=== PATIENT | male | born 1945 | race Caucasian/White ===

== ENCOUNTER 2020-03-22 11:51 | Emergency (ER) | payer OTHER ==
[~2020-03-22] VITALS: Ht 180.3 cm; Wt 120.2 kg
[2020-03-22] MEDS ORDERED: AMIT25 PO (12:02)
[2020-03-22] MEDS ORDERED: FINA5 PO (12:02)
[2020-03-22] MEDS ORDERED: AMLO10 PO (12:02)
[2020-03-22] MEDS ORDERED: CALCIUM CIT 311 EACH PO (12:02)
[2020-03-22] MEDS ORDERED: BASAGLAR K100 UNIT/1 (12:03)
[2020-03-22] MEDS ORDERED: TAMS.4ER PO (12:04)
[2020-03-22] MEDS ORDERED: PRAV20 PO (12:04)
[2020-03-22] MEDS ORDERED: MAGNESIUM OXID500 MG PO (12:04)
[2020-03-22 12:20] LABS: BASOPHILS ABSOLUTE AUTO 0.04 K/mm3 (0.00-0.23); BASOPHILS PERCENT AUTO 1 % (0-2); EOSINOPHILS ABSOLUTE AUTO 0.44 K/mm3 (0.00-0.68); EOSINOPHILS PERCENT AUTO 6 % (0-6); Hematocrit 43.9 % (37.0-53.0); Hemoglobin 14.1 g/dL (13.5-17.5); IMMATURE GRAN ABSOLUTE AUTO 0.02 K/mm3 (0.00-0.10); IMMATURE GRAN PERCENT AUTO 0 % (0-1); LYMPHOCYTES ABSOLUTE AUTO 1.84 K/mm3 (0.84-5.20); LYMPHOCYTES PERCENT AUTO 23 % (21-46); MONOCYTES PERCENT AUTO 6 % (4-13); Mean Corpuscular HGB 31.1 pg (26.0-34.0); Mean Corpuscular HGB Conc 32.1 g/dL (31.5-36.5); Mean Corpuscular Volume 97 fL (80-100); Mean Platelet Volume 9.7 fL (9.1-12.4); NEUTROPHILS ABSOLUTE AUTO 5.05 K/mm3 (1.96-9.15); NEUTROPHILS PERCENT AUTO 64 % (41-73); Platelet Count 185 K/mm3 (150-400); RDW Coefficient Variation 12.7 % (11.7-14.2); RDW Standard Deviation 45.1 fL (35.1-46.3); Red Blood Cell Count 4.54 M/mm3 (4.30-5.90); White Blood Cell Count 7.89 K/mm3 (4.00-11.30)
[2020-03-22 12:40] LABS: Alanine Aminotransfer (ALT/SGP 33 U/L (12-78); Albumin, Blood 3.3 g/dL (3.4-5.0); Albumin/Globulin Ratio 0.8 (0.8-1.8); Alk Phos 100 U/L (50-136); Anion Gap 7 mmol/L (6-16); Aspartate Aminotrans (AST/SGOT 25 U/L (12-37); Bilirubin, Total 0.5 mg/dL (0.1-1.0); Blood Urea Nitrogen 29 mg/dL (8-24); Bun/Creatinine Ratio 17.7 (12.0-20.0); CO2, Blood 24 mmol/L (21-32); Calcium, Blood 9.2 mg/dL (8.5-10.1); Chloride, Blood 108 mmol/L (98-108); Creatinine, Blood 1.64 mg/dL (0.60-1.20); Globulin, Blood 4.1 g/dL (2.2-4.0); Glomerular Filtration Rate 44 (60-); Glucose, Blood 301 mg/dL (70-99); Potassium, Blood 4.4 mmol/L (3.5-5.5); Sodium, Blood 139 mmol/L (136-145); Total Protein, Blood 7.4 g/dL (6.4-8.2); Troponin I <0.015 ng/mL (0.000-0.040)
== END 2020-03-22 14:10 | disposition home or self-care (01) ==
LOC: ER 11:51
PROVIDERS: Emergency Medicine
DX: R07.9 Chest pain, unspecified (principal); E11.65 Type 2 diabetes mellitus with hyperglycemia; Z87.891 Personal history of nicotine dependence; Z79.899 Other long term (current) drug therapy
CPT/HCPCS: 71046; 80053; 83690; 83880; 84484; 85025; 93005; 93010; 99285-25

== ENCOUNTER 2022-01-13 12:47 | Emergency (ER) | payer OTHER ==
[~2022-01-13] VITALS: Ht 177.8 cm; Wt 101.6 kg
[~2022-01-13 12:47] MED LIST: AMIT25 PO; AMLO10 PO; BASAGLAR K100 UNIT/1; CALCIUM CIT 311 EACH PO; FINA5 PO; MAGNESIUM OXID500 MG PO; PRAV20 PO; TAMS.4ER PO
[2022-01-13] MEDS ORDERED: CYCL10 PO (15:12)
[2022-01-13] MEDS ORDERED: ACETAMINOPHEN500 MG PO (15:12)
== END 2022-01-13 15:32 | disposition home or self-care (01) ==
LOC: ER 12:47
DX: M54.41 Lumbago with sciatica, right side (principal); Z87.891 Personal history of nicotine dependence; Z79.899 Other long term (current) drug therapy; Z79.4 Long term (current) use of insulin
CPT/HCPCS: 72100

== ENCOUNTER 2022-03-10 15:34 | Emergency (ER) | payer OTHER ==
[~2022-03-10] VITALS: Ht 180.3 cm; Wt 104.3 kg
[~2022-03-10 15:34] MED LIST changes: +ACETAMINOPHEN500 MG PO; +CYCL10 PO
[2022-03-10 16:05] LABS: BASOPHILS ABSOLUTE AUTO 0.02 K/mm3 (0.00-0.23); BASOPHILS PERCENT AUTO 0 % (0-2); EOSINOPHILS ABSOLUTE AUTO 0.25 K/mm3 (0.00-0.68); EOSINOPHILS PERCENT AUTO 3 % (0-6); Hematocrit 44.9 % (37.0-53.0); Hemoglobin 15.2 g/dL (13.5-17.5); IMMATURE GRAN ABSOLUTE AUTO 0.02 K/mm3 (0.00-0.10); IMMATURE GRAN PERCENT AUTO 0 % (0-1); LYMPHOCYTES ABSOLUTE AUTO 1.68 K/mm3 (0.84-5.20); LYMPHOCYTES PERCENT AUTO 22 % (21-46); MONOCYTES ABSOLUTE AUTO 0.57 K/mm3 (0.16-1.47); MONOCYTES PERCENT AUTO 8 % (4-13); Mean Corpuscular HGB 31.8 pg (26.0-34.0); Mean Corpuscular HGB Conc 33.9 g/dL (31.5-36.5); Mean Corpuscular Volume 94 fL (80-100); NEUTROPHILS PERCENT AUTO 66 % (41-73); Platelet Count 211 K/mm3 (150-400); RDW Coefficient Variation 12.5 % (11.7-14.2); RDW Standard Deviation 43.2 fL (35.1-46.3); Red Blood Cell Count 4.78 M/mm3 (4.30-5.90); White Blood Cell Count 7.54 K/mm3 (4.00-11.30)
[2022-03-10 16:27] LABS: Albumin, Blood 3.2 g/dL (3.4-5.0); Albumin/Globulin Ratio 0.8 (0.8-1.8); Bilirubin, Total 0.6 mg/dL (0.1-1.0); Calcium, Blood 9.5 mg/dL (8.5-10.1); Creatinine, Blood 1.47 mg/dL (0.60-1.20); Total Protein, Blood 7.2 g/dL (6.4-8.2)
== END 2022-03-10 17:36 | disposition home or self-care (01) ==
LOC: ER 15:34
PROVIDERS: Emergency Medicine
DX: R55 Syncope and collapse (principal); T14.8XXA Other injury of unspecified body region, initial encounter; N28.9 Disorder of kidney and ureter, unspecified; Z87.891 Personal history of nicotine dependence; Z79.899 Other long term (current) drug therapy; W19.XXXA Unspecified fall, initial encounter; Z91.81 History of falling
CPT/HCPCS: 71045; 80053; 82947; 83880; 84484; 85025; 93242

== ENCOUNTER 2022-10-16 10:26 | Day surgery (SDC) | payer OTHER ==
[~2022-10-16] VITALS: Ht 177.8 cm; Wt 105.8 kg
[2022-10-16] MEDS ORDERED: JARDIANCE25 MG (11:01)
[2022-10-16] MEDS ORDERED: EZET10 (11:02)
--- NOTE | 2022-10-16 11:10 | NUR ---
10/16/22 1110 Linnea Marie TETRACAINE PLACED AT 1100, PLEDGET PLACED AT 1103
== END 2022-10-16 12:45 | disposition home or self-care (01) ==
LOC: ORSCSDS 10:26
PROVIDERS: Ophthalmology
PROC: 08RJ3JZ Replacement of Right Lens with Synthetic Substitute, Percutaneous Approach (ICD-10-PCS; principal; 2022-10-16 12:00)
DX: H25.11 Age-related nuclear cataract, right eye (principal); H52.201 Unspecified astigmatism, right eye; I10 Essential (primary) hypertension; E11.9 Type 2 diabetes mellitus without complications; E78.5 Hyperlipidemia, unspecified; Z79.4 Long term (current) use of insulin; Z79.899 Other long term (current) drug therapy; J45.909 Unspecified asthma, uncomplicated
CPT/HCPCS: 82947; J2001; J2250; J3010; J3301; J7040; V2632

== ENCOUNTER 2023-04-06 14:06 | Inpatient (IN) | payer OTHER ==
[~2023-04-06] VITALS: Ht 177.8 cm; Wt 89.0 kg
[~2023-04-06 14:06] MED LIST changes: +EZET10; +JARDIANCE25 MG
[2023-04-06 14:54] LABS: BASOPHILS ABSOLUTE AUTO 0.03 K/mm3 (0.00-0.23); BASOPHILS PERCENT AUTO 0 % (0-2); EOSINOPHILS ABSOLUTE AUTO 0.29 K/mm3 (0.00-0.68); EOSINOPHILS PERCENT AUTO 4 % (0-6); Hematocrit 47.2 % (37.0-53.0); Hemoglobin 15.4 g/dL (13.5-17.5); IMMATURE GRAN ABSOLUTE AUTO 0.02 K/mm3 (0.00-0.10); IMMATURE GRAN PERCENT AUTO 0 % (0-1); LYMPHOCYTES ABSOLUTE AUTO 0.97 K/mm3 (0.84-5.20); LYMPHOCYTES PERCENT AUTO 12 % (21-46); MONOCYTES ABSOLUTE AUTO 0.68 K/mm3 (0.16-1.47); MONOCYTES PERCENT AUTO 8 % (4-13); Mean Corpuscular HGB 31.1 pg (26.0-34.0); Mean Corpuscular HGB Conc 32.6 g/dL (31.5-36.5); Mean Corpuscular Volume 95 fL (80-100); Mean Platelet Volume 9.6 fL (9.1-12.4); NEUTROPHILS ABSOLUTE AUTO 6.36 K/mm3 (1.96-9.15); NEUTROPHILS PERCENT AUTO 76 % (41-73); Platelet Count 226 K/mm3 (150-400); RDW Coefficient Variation 12.6 % (11.7-14.2); RDW Standard Deviation 43.9 fL (35.1-46.3); Red Blood Cell Count 4.95 M/mm3 (4.30-5.90); White Blood Cell Count 8.35 K/mm3 (4.00-11.30)
[2023-04-06 15:07] LABS: Albumin/Globulin Ratio 0.7 (0.8-1.8); Bilirubin, Total 0.4 mg/dL (0.1-1.0); Bun/Creatinine Ratio 10.9 (12.0-20.0); Calcium, Blood 9.5 mg/dL (8.5-10.1); Creatinine, Blood 1.56 mg/dL (0.60-1.20); Globulin, Blood 4.2 g/dL (2.2-4.0); Potassium, Blood 4.2 mmol/L (3.5-5.5); Total Protein, Blood 7.2 g/dL (6.4-8.2)
[2023-04-06 21:49] LABS: D-Dimer, Quantitative 1.5 mg/L FEU (0.00-0.52); International Normalized Ratio 1.04; Prothrombin Time Results 10.9 Sec (9.7-11.5)
[2023-04-06 23:15] VITALS: BP 139/73
[2023-04-06 23:59] LABS: PCO2 Arterial 50.3 mmHg (35-45); PO2 Arterial 62.6 mmHg (80-100); pH Blood Arterial 7.27 (7.35-7.45)
[2023-04-07] VITALS (9 sets, daily range): BP systolic 111–154; BP diastolic 64–97
--- NOTE | 2023-04-07 02:10 | NUR ---
UPDATE PROVIDER IN TO SEE PT AT BEDSIDE AND DISCUSS WITH PT. PT LUNGS "GURGLY" AND RUB NOTED. PROVIDER ORDERS FOR REPEAT CXR. PROVIDER ALSO TO PUT IN ORDERS FOR PT TO START PRESNIDONE AND ONE TIME DOSE OF TORODOL IV FOR PAIN MANAGEMENT. PT IN INTENSE PAIN IN "CHEST AND ABDOMEN". PT DESCRIBES PAIN "STABBING AND TROBBING" UNDER RIGHT BREAST, UPPER ABDOMEN AND INTO BACK". PT ABDOMEN NOT TENDER TO THE TOUCH, NO MASSES PALPATED. TORODOL ADMINISTERED W/MINIMAL RELIEF. ADDITIONAL PAIN MEDICATION ADMINISTERED PER EMAR WHICH PROVIDED RELIEF. PT NOW RESTING IN ROOM.
[2023-04-07 03:54] LABS: BASOPHILS ABSOLUTE AUTO 0.05 K/mm3 (0.00-0.23); BASOPHILS PERCENT AUTO 0 % (0-2); EOSINOPHILS ABSOLUTE AUTO 0.21 K/mm3 (0.00-0.68); EOSINOPHILS PERCENT AUTO 2 % (0-6); Hemoglobin 14.8 g/dL (13.5-17.5); IMMATURE GRAN ABSOLUTE AUTO 0.05 K/mm3 (0.00-0.10); IMMATURE GRAN PERCENT AUTO 0 % (0-1); LYMPHOCYTES ABSOLUTE AUTO 1.05 K/mm3 (0.84-5.20); LYMPHOCYTES PERCENT AUTO 9 % (21-46); MONOCYTES ABSOLUTE AUTO 1.04 K/mm3 (0.16-1.47); MONOCYTES PERCENT AUTO 9 % (4-13); Mean Corpuscular HGB 31.3 pg (26.0-34.0); Mean Corpuscular HGB Conc 32.9 g/dL (31.5-36.5); Mean Corpuscular Volume 95 fL (80-100); Mean Platelet Volume 9.2 fL (9.1-12.4); NEUTROPHILS ABSOLUTE AUTO 9.59 K/mm3 (1.96-9.15); NEUTROPHILS PERCENT AUTO 80 % (41-73); Platelet Count 222 K/mm3 (150-400); RDW Coefficient Variation 12.4 % (11.7-14.2); RDW Standard Deviation 43.7 fL (35.1-46.3); Red Blood Cell Count 4.73 M/mm3 (4.30-5.90); White Blood Cell Count 11.99 K/mm3 (4.00-11.30)
[2023-04-07 04:08] LABS: International Normalized Ratio 1.03; Prothrombin Time Results 10.8 Sec (9.7-11.5)
[2023-04-07 04:17] LABS: Albumin, Blood 2.9 g/dL (3.4-5.0); Albumin/Globulin Ratio 0.7 (0.8-1.8); Bilirubin, Total 0.5 mg/dL (0.1-1.0); Bun/Creatinine Ratio 10.5 (12.0-20.0); Calcium, Blood 9.2 mg/dL (8.5-10.1); Creatinine, Blood 1.72 mg/dL (0.60-1.20); Globulin, Blood 4.3 g/dL (2.2-4.0); Magnesium, Blood 2.5 mg/dL (1.6-2.4); Potassium, Blood 4.6 mmol/L (3.5-5.5); Total Protein, Blood 7.2 g/dL (6.4-8.2)
[2023-04-07 06:03] LABS: Adenovirus Not Detected (NOT DETECT); Bordetella pertussis Not Detected (NOT DETECT); Chlamydophila pneumoniae Not Detected (NOT DETECT); Coronavirus 229E Not Detected (NOT DETECT); Coronavirus HKU1 Not Detected (NOT DETECT); Coronavirus NL63 Not Detected (NOT DETECT); Coronavirus OC43 Not Detected (NOT DETECT); Human Metapneumovirus Not Detected (NOT DETECT); Human Rhinovirus/Enterovirus Not Detected (NOT DETECT); Influenza A/2009-H1 Not Detected (NOT DETECT); Influenza A/H1 Not Detected (NOT DETECT); Influenza A/H3 Not Detected (NOT DETECT); Influenza B Not Detected (NOT DETECT); Mycoplasma pneumoniae Not Detected (NOT DETECT); Parainfluenza Virus 1 Not Detected (NOT DETECT); Parainfluenza Virus 2 Not Detected (NOT DETECT); Parainfluenza Virus 3 Not Detected (NOT DETECT); Parainfluenza Virus 4 Not Detected (NOT DETECT); Respiratory Syncytial Virus Not Detected (NOT DETECT); SARS-Cov-2 (COVID-19), BioFire Not Detected (NOT DETECT)
--- NOTE | 2023-04-07 07:50 | NUR ---
Bedside report received from DARWIN Tong. Pt is apparently sleeping in dimly lit room, HOB elevated and respirations noted even, unlabored and sinus rhythm at 70 bpm noted by bedside aquaculturist. RN states that pt received increased dose of IV morphine at approx 2 am and finally had relief from his excrutiating pain.
--- NOTE | 2023-04-07 08:39 | NUR ---
Pt had a few single sharp pain episodes this morning, associated with deep inspiration. States it resolved when he sat up. STates that he doesn't always get the pain when he takes deep breaths. He is now lying back in bed, HOB elevated 30 degrees. NO swelling, no dyspnea, and no other symptoms.
--- NOTE | 2023-04-07 09:19 | NUR ---
Pt was educated re: sources of ignition and dangers associated with them in hospital where oxygen is in use. Pt was educated that any sources of ignition are prohibited on the hospital campus at all times, and that any which are brought in by the patient or any visitors must be removed immediately. Pt verbalized compliance and understanding.
--- NOTE | 2023-04-07 11:48 | NUR ---
Call to Dr. Henderson regarding pt's blood sugar coverage. The pt states he takes 10 units of insulin for lunch and for dinner. Received order for 10 units coverage at this time, and Dr. Henderson will evaluate and adjust the order for future coverage.
--- NOTE | 2023-04-07 17:10 | NUR ---
Pt is sitting up in recliner chair, which he has been doing for most of the afternoon. Stand by assistance to get to the bathroom, either staff or by his . He has not had any pain this afternoon that he has reported. Appears to be comfortable, and is no longer requiring oxygen at rest. Pt and his informed of the imaging ordered for tomorrow morning, expected around 8 am, per nuclear med tech today.
[2023-04-07] MEDS ORDERED: AMIT25 PO (22:31)
[2023-04-07] MEDS ORDERED: AMIT50 PO (22:31)
[2023-04-07] MEDS ORDERED: Cyclobenzaprine5 MG PO (22:32)
[2023-04-07] MEDS ORDERED: THERA-D2000 UNIT PO (22:32)
[2023-04-07] MEDS ORDERED: AMLO10 PO (22:32)
[2023-04-07] MEDS ORDERED: JARDIANCE25 MG PO (22:33)
[2023-04-07] MEDS ORDERED: DONEPEZIL HCL10 MG PO (22:33)
[2023-04-07] MEDS ORDERED: FINA5 PO (22:34)
[2023-04-07] MEDS ORDERED: EZET10 PO (22:34)
[2023-04-07] MEDS ORDERED: MAGNESIUM OXID500 MG PO (22:35)
[2023-04-07] MEDS ORDERED: BASAGLAR K100 UNIT/1 SC (22:35)
[2023-04-07] MEDS ORDERED: TAMS.4ER PO (22:36)
[2023-04-08 00:53] VITALS: BP 154/74
[2023-04-08 03:24] VITALS: BP 168/68
[2023-04-08 03:30] VITALS: BP 168/68
--- NOTE | 2023-04-08 03:33 | NUR ---
NOC SHIFT SUMMARY PT ORIENTED X4, VSS PER PT TREND. BLOOD SUGAR ELEVATED AT HS IN 300S, PT HAD IV STEROIDS STOPPED TODAY PER DR. GARCIA AND LONG ACTING INSULIN RESTARTED. WILL MONITOR WITH [facility]. PER AT BEDSIDE AT START OF SHIFT PT HAS DEMENTIA/ALZHEIMERS. SOME FORGETFULNESS NOTED AT 0300, PT WOKE UP THINKING IT WAS LATER IN THE MORNING AND HE WAS READY TO GO TO HIS SCAN. REORIENTED EASILY. UPDATED MED LIST VIA [facility] REQUEST. REPORT GIVEN TO DEANN Palmer RN
[2023-04-08 04:06] LABS: Hematocrit 43.2 % (37.0-53.0); Hemoglobin 14.3 g/dL (13.5-17.5); Mean Corpuscular HGB 31.1 pg (26.0-34.0); Mean Corpuscular HGB Conc 33.1 g/dL (31.5-36.5); Mean Corpuscular Volume 94 fL (80-100); Mean Platelet Volume 9.4 fL (9.1-12.4); Platelet Count 220 K/mm3 (150-400); RDW Coefficient Variation 12.3 % (11.7-14.2); RDW Standard Deviation 42.9 fL (35.1-46.3)
[2023-04-08 04:24] LABS: Bun/Creatinine Ratio 20.6 (12.0-20.0); Calcium, Blood 9.7 mg/dL (8.5-10.1); Creatinine, Blood 1.7 mg/dL (0.60-1.20); Potassium, Blood 4.2 mmol/L (3.5-5.5)
[2023-04-08 07:41] VITALS: BP 145/75
--- NOTE | 2023-04-08 09:48 | NUR ---
IGNITION RISK ASSESSMENT PT ASSESSED FOR SMOKING OR IGNINTION RISK DEVICES, NONE REPORTED. OT REMINDED THAT [facility] IS A SMOKE FREE FACILITY AND THAT ANY VISITORS NEED TO LEAVE IGNITION RISK DEVICES IN THEIR VEHICLE. PT AGREED.
[2023-04-08 11:20] VITALS: BP 129/69
[2023-04-08] MEDS ORDERED: VISBIOME 112.51 EACH PO (12:21)
[2023-04-08] MEDS ORDERED: Acetaminophen325 M1 PO (12:22)
[2023-04-08] MEDS ORDERED: LEVAQUIN750 MG PO (12:23)
[2023-04-08] MEDS ORDERED: MIRALAX17 GM PO (12:25)
--- NOTE | 2023-04-08 13:40 | NUR ---
REPORT GIVEN TO CARLOS GRANADOS. CARLOS TO ASSUME CARE OF PT.
== END 2023-04-08 13:40 | disposition home or self-care (01) | DRG 193 ==
LOC: ER 14:06 → PCU 21:29
PROVIDERS: Emergency Medicine; Internal Medicine; Nurse Practitioner Acute Care; ADMIT Internal Medicine
PROC: 5A09357 Assistance with Respiratory Ventilation, Less than 24 Consecutive Hours, Continuous Positive Airway Pressure (ICD-10-PCS; principal; 2023-04-07)
PROC: 4A033R1 Measurement of Arterial Saturation, Peripheral, Percutaneous Approach (ICD-10-PCS; 2023-04-07)
DX: J18.9 Pneumonia, unspecified organism (principal); J96.01 Acute respiratory failure with hypoxia; J96.02 Acute respiratory failure with hypercapnia; J98.11 Atelectasis; G47.33 Obstructive sleep apnea (adult) (pediatric); E11.22 Type 2 diabetes mellitus with diabetic chronic kidney disease; N40.0 Benign prostatic hyperplasia without lower urinary tract symptoms; N18.30 Chronic kidney disease, stage 3 unspecified; I12.9 Hypertensive chronic kidney disease with stage 1 through stage 4 chronic kidney disease, or unspecified chronic kidney disease; E66.9 Obesity, unspecified; R59.1 Generalized enlarged lymph nodes; E78.5 Hyperlipidemia, unspecified; Z20.822 Contact with and (suspected) exposure to COVID-19; Z85.038 Personal history of other malignant neoplasm of large intestine; Z87.891 Personal history of nicotine dependence; Z90.49 Acquired absence of other specified parts of digestive tract; Z88.8 Allergy status to other drugs, medicaments and biological substances; Z88.1 Allergy status to other antibiotic agents; Z88.2 Allergy status to sulfonamides; Z79.899 Other long term (current) drug therapy; Z79.4 Long term (current) use of insulin; Z98.890 Other specified postprocedural states; Z68.25 Body mass index [BMI] 25.0-25.9, adult
CPT/HCPCS: 0202U; 36415; 36600; 71045; 71046; 71275; 74174; 76705; 80048; 80053; 82164; 82803; 82947; 83605; 83690; 83735; 83880; 84145; 84484; 85025; 85027; 85379; 85610; 85730; 93005; 93010; 93306; 94660; 94762; 96361; 96365; 96366; 96372; 96374-59; 96375; 96375-59; 96376; 96376-59; 97112; 97116; 97162; 99285-25; A9270; C9113; G0378; J1170; J1644; J1815; J1885; J1956; J2270; J2405; J7030; J7512; Q9967

== ENCOUNTER 2023-08-14 08:16 | Emergency (ER) | payer OTHER ==
[~2023-08-14] VITALS: Ht 172.7 cm; Wt 99.8 kg
[~2023-08-14 08:16] MED LIST changes: +AMIT50 PO; +Acetaminophen325 M1 PO; +BASAGLAR K100 UNIT/1 SC; +Cyclobenzaprine5 MG PO; +DONEPEZIL HCL10 MG PO; +EZET10 PO; +JARDIANCE25 MG PO; +LEVAQUIN750 MG PO; +MIRALAX17 GM PO; +THERA-D2000 UNIT PO; +VISBIOME 112.51 EACH PO
[2023-08-14 09:06] LABS: BASOPHILS ABSOLUTE AUTO 0.02 K/mm3 (0.00-0.23); BASOPHILS PERCENT AUTO 0 % (0-2); EOSINOPHILS ABSOLUTE AUTO 0.06 K/mm3 (0.00-0.68); EOSINOPHILS PERCENT AUTO 1 % (0-6); Hematocrit 45.6 % (37.0-53.0); Hemoglobin 15.2 g/dL (13.5-17.5); IMMATURE GRAN ABSOLUTE AUTO 0.03 K/mm3 (0.00-0.10); IMMATURE GRAN PERCENT AUTO 0 % (0-1); LYMPHOCYTES ABSOLUTE AUTO 1.15 K/mm3 (0.84-5.20); LYMPHOCYTES PERCENT AUTO 13 % (21-46); MONOCYTES ABSOLUTE AUTO 0.51 K/mm3 (0.16-1.47); MONOCYTES PERCENT AUTO 6 % (4-13); Mean Corpuscular HGB 31.1 pg (26.0-34.0); Mean Corpuscular HGB Conc 33.3 g/dL (31.5-36.5); Mean Corpuscular Volume 93 fL (80-100); Mean Platelet Volume 9.7 fL (9.1-12.4); NEUTROPHILS ABSOLUTE AUTO 6.87 K/mm3 (1.96-9.15); NEUTROPHILS PERCENT AUTO 80 % (41-73); Platelet Count 208 K/mm3 (150-400); RDW Coefficient Variation 12.4 % (11.7-14.2); RDW Standard Deviation 42.8 fL (35.1-46.3); Red Blood Cell Count 4.88 M/mm3 (4.30-5.90); White Blood Cell Count 8.64 K/mm3 (4.00-11.30)
[2023-08-14 09:17] LABS: Albumin, Blood 3.4 g/dL (3.4-5.0); Albumin/Globulin Ratio 0.8 (0.8-1.8); Bilirubin, Total 0.3 mg/dL (0.1-1.0); Bun/Creatinine Ratio 16.7 (12.0-20.0); Creatinine, Blood 1.56 mg/dL (0.60-1.20); Globulin, Blood 4.1 g/dL (2.2-4.0); Potassium, Blood 3.9 mmol/L (3.5-5.5); Total Protein, Blood 7.5 g/dL (6.4-8.2)
[2023-08-14 09:22] LABS: International Normalized Ratio 1.02; Prothrombin Time Results 10.7 Sec (9.7-11.5)
[2023-08-14 13:15] VITALS: BP 150/98
== END 2023-08-14 13:37 | disposition home or self-care (01) ==
LOC: ER 08:16
PROVIDERS: Emergency Medicine
DX: R07.9 Chest pain, unspecified (principal); R19.7 Diarrhea, unspecified; Z88.2 Allergy status to sulfonamides; Z88.1 Allergy status to other antibiotic agents; Z88.8 Allergy status to other drugs, medicaments and biological substances; Z79.899 Other long term (current) drug therapy; Z79.4 Long term (current) use of insulin
CPT/HCPCS: 71046; 80053; 83690; 83735; 84484; 85025; 85610; 93005; 93010; 96360; 99285-25; J7030

== ENCOUNTER 2023-09-26 05:43 | Emergency (ER) | payer OTHER ==
[~2023-09-26] VITALS: Ht 177.8 cm; Wt 99.8 kg
[2023-09-26 06:14] VITALS: BP 121/70
[2023-09-26] MEDS ORDERED: Voltaren100 GM TOP (08:24)
[2023-09-26] MEDS ORDERED: Percocet 5-3251 EACH PO (08:24)
== END 2023-09-26 08:38 | disposition home or self-care (01) ==
LOC: ER 05:43
DX: M25.532 Pain in left wrist (principal); Z79.899 Other long term (current) drug therapy; Z79.4 Long term (current) use of insulin; Z88.2 Allergy status to sulfonamides; Z88.8 Allergy status to other drugs, medicaments and biological substances; Z88.1 Allergy status to other antibiotic agents; Z88.5 Allergy status to narcotic agent
CPT/HCPCS: 99283; A9270

== ENCOUNTER 2025-05-19 10:56 | Emergency (ER) | payer OTHER ==
[~2025-05-19] VITALS: Ht 170.2 cm; Wt 77.1 kg
[~2025-05-19 10:56] MED LIST changes: +ALEVAZOL56.7 G1 TOP; +GABA300 PO; +Percocet 5-3251 EACH PO; +Voltaren100 GM TOP
[2025-05-19] MEDS ORDERED: Clindamycin 900mg in D5W 50ML 50 ML IV ONE (11:20)
[2025-05-19] MEDS ORDERED: IBUP600 PO (13:44)
[2025-05-19] MEDS ORDERED: PERCOCET 10-321 EA13 PO (13:44)
[2025-05-19] MEDS ORDERED: CLIN300 PO (13:44)
[2025-05-19] MEDS ORDERED: ACET500 PO (13:44)
[2025-05-19] MEDS ORDERED: Morphine Sulfate 4 MG/1 ML Injection IV ONE (14:10)
[2025-05-19 14:15] VITALS: BP 134/63
== END 2025-05-19 14:35 | disposition home or self-care (01) ==
LOC: ER 10:56
DX: S62.627A Displaced fracture of middle phalanx of left little finger, initial encounter for closed fracture (principal); S62.655A Nondisplaced fracture of middle phalanx of left ring finger, initial encounter for closed fracture; S61.412A Laceration without foreign body of left hand, initial encounter; E11.22 Type 2 diabetes mellitus with diabetic chronic kidney disease; N18.9 Chronic kidney disease, unspecified; E11.40 Type 2 diabetes mellitus with diabetic neuropathy, unspecified; W27.0XXA Contact with workbench tool, initial encounter; Z87.891 Personal history of nicotine dependence; Z79.4 Long term (current) use of insulin; Z79.899 Other long term (current) drug therapy; Z88.1 Allergy status to other antibiotic agents; Z88.8 Allergy status to other drugs, medicaments and biological substances
CPT/HCPCS: 12004; 29125; 73130; 90471; 90715; 96365; 96375; 99284-25; J2270